=== PATIENT | female | born 1930 | race Caucasian/White ===

== ENCOUNTER 2016-12-12 12:28 | Emergency (ER) | payer OTHER ==
[~2016-12-12 12:28] MED LIST: ASPIR 8181 MG PO; COMINH INH; ESCITALOPRAM PO; FLA500 PO; HEP-FORTE1 CAP PO; HYDROCHLOROTHIA1 POW; LAC PO; LEVAQUIN750 MG PO; LEVOTHYROXIN0.025 M2; METOPROLOL SUCC25 M1; VITAMIN B121000 MCG PO
[2016-12-12 13:51] LABS: microscopic required? NO
[2016-12-12 14:17] LABS: CALCIUM 9.3 mg/dL (8.5-10.1); CARBON DIOXIDE 32.2 mmol/L (21-32); CHLORIDE SERUM 99 mmol/L (98-107); GLUCOSE SERUM 141 mg/dL (74-106); POTASSIUM SERUM 3.7 mmol/L (3.5-5.1); SODIUM SERUM 136 mmol/L (136-145)
[2016-12-12 14:22] LABS: ALBUMIN 3.4 g/dL (3.4-5.0); ALKALINE PHOSPHATASE 65 U/L (46-116); ALT/SGPT 15 U/L (14-59); AST/SGOT 18 U/L (15-37); BILIRUBIN TOTAL 0.8 mg/dL (0.20-1.00); TOTAL PROTEIN, SERUM 6.8 g/dL (6.4-8.2)
[2016-12-12 14:23] LABS: BASOPHIL % 0.5 % (0-2); PLATELET COUNT 252 x10^3mcL (130-400)
[2016-12-12 14:31] LABS: RED CELL DISTRIBUTION WIDTH 14.6 % (11.5-14.5)
[2016-12-12 14:43] LABS: CK-MB 0.8 ng/mL (0-3.6)
[2016-12-12 15:15] LABS: UA SPECIFIC GRAVITY 1.015 (1.005-1.035); urine erythrocyte NEGATIVE (NEGATIVE)
--- NOTE | 2016-12-12 15:16 | NUR ---
PT REFUSED ABG AT THIS TIME. DR. BIGGS MADE AWARE.
[2016-12-12 16:16] VITALS: BP 147/65
== END 2016-12-12 16:16 | disposition home or self-care (01) ==
LOC: ED 12:28
PROVIDERS: Emergency Medicine
DX: R51 Headache (principal); I25.10 Atherosclerotic heart disease of native coronary artery without angina pectoris; I25.2 Old myocardial infarction; I10 Essential (primary) hypertension; E03.9 Hypothyroidism, unspecified; J44.9 Chronic obstructive pulmonary disease, unspecified; D58.0 Hereditary spherocytosis; Z88.5 Allergy status to narcotic agent; Z87.891 Personal history of nicotine dependence; Z85.118 Personal history of other malignant neoplasm of bronchus and lung
CPT/HCPCS: 83880; J7030; Q0092

== ENCOUNTER 2017-05-12 16:09 | Emergency (ER) | payer OTHER ==
[2017-05-12 17:39] LABS: BASOPHIL % 0.6 % (0-2); PLATELET COUNT 182 x10^3mcL (130-400); RED CELL DISTRIBUTION WIDTH 14.5 % (11.5-14.5)
[2017-05-12 17:51] LABS: ALBUMIN 3.6 g/dL (3.4-5.0); ALKALINE PHOSPHATASE 75 U/L (46-116); ALT/SGPT 14 U/L (14-59); AST/SGOT 29 U/L (15-37); BILIRUBIN TOTAL 0.79 mg/dL (0.20-1.00); CARBON DIOXIDE 32.4 mmol/L (21-32); CHLORIDE SERUM 97 mmol/L (98-107); CREATININE SERUM 0.9 mg/dL (0.6-1.0); GLUCOSE SERUM 104 mg/dL (74-106); POTASSIUM SERUM 4.1 mmol/L (3.5-5.1); SODIUM SERUM 135 mmol/L (136-145); TOTAL PROTEIN, SERUM 7.3 g/dL (6.4-8.2)
[2017-05-12 19:20] VITALS: BP 158/73
== END 2017-05-12 19:20 | disposition home or self-care (01) ==
LOC: ED 16:09
PROVIDERS: Emergency Medicine
DX: R27.0 Ataxia, unspecified (principal); I10 Essential (primary) hypertension; J44.9 Chronic obstructive pulmonary disease, unspecified; E03.9 Hypothyroidism, unspecified; Z85.3 Personal history of malignant neoplasm of breast; Z85.118 Personal history of other malignant neoplasm of bronchus and lung; Z88.5 Allergy status to narcotic agent; Z79.899 Other long term (current) drug therapy
CPT/HCPCS: 36415; Q0092

== ENCOUNTER 2017-09-16 19:20 | Emergency (ER) | payer OTHER ==
[~2017-09-16] VITALS: Ht 160 cm; Wt 50.3 kg
[2017-09-16 20:08] VITALS: BP 155/74; Ht 160 cm; Wt 50.3 kg
== END 2017-09-16 21:04 | disposition home or self-care (01) ==
LOC: ED 19:20
DX: S81.812A Laceration without foreign body, left lower leg, initial encounter (principal); Z88.5 Allergy status to narcotic agent; W54.0XXA Bitten by dog, initial encounter; Y93.89 Activity, other specified; Y92.89 Other specified places as the place of occurrence of the external cause; Y99.8 Other external cause status
CPT/HCPCS: 90715

== ENCOUNTER 2017-12-22 13:27 | Emergency (ER) | payer OTHER ==
[~2017-12-22] VITALS: Ht 160 cm; Wt 54.4 kg
[2017-12-22 13:29] VITALS: Ht 160 cm; Wt 54.4 kg
[2017-12-22 15:51] VITALS: BP 123/61
== END 2017-12-22 15:51 | disposition home or self-care (01) ==
LOC: ED 13:27
DX: R42 Dizziness and giddiness (principal); R51 Headache; I10 Essential (primary) hypertension; J44.9 Chronic obstructive pulmonary disease, unspecified; Z88.5 Allergy status to narcotic agent; Z90.49 Acquired absence of other specified parts of digestive tract; Z85.3 Personal history of malignant neoplasm of breast; Z85.118 Personal history of other malignant neoplasm of bronchus and lung
CPT/HCPCS: J1885; J8597

== ENCOUNTER 2018-03-29 00:12 | Emergency (ER) | payer OTHER ==
[~2018-03-29] VITALS: Ht 160 cm; Wt 49.9 kg
[2018-03-29 01:22] LABS: BASOPHIL % 0.6 % (0-2); PLATELET COUNT 225 x10^3mcL (130-400)
[2018-03-29 01:23] LABS: RED CELL DISTRIBUTION WIDTH 16.3 % (11.5-14.5)
[2018-03-29 01:31] LABS: CALCIUM 8.7 mg/dL (8.5-10.1); CARBON DIOXIDE 28.2 mmol/L (21-32); CHLORIDE SERUM 95 mmol/L (98-107); CREATININE SERUM 1.3 mg/dL (0.6-1.0); GLUCOSE SERUM 97 mg/dL (74-106); POTASSIUM SERUM 3.6 mmol/L (3.5-5.1); SODIUM SERUM 133 mmol/L (136-145)
[2018-03-29 01:37] LABS: AMPHETAMINE QUAL UR NONE DETECTED (See below)
[2018-03-29 01:39] LABS: ALBUMIN 3.5 g/dL (3.4-5.0); ALKALINE PHOSPHATASE 65 U/L (46-116); ALT/SGPT 17 U/L (14-59); AST/SGOT 18 U/L (15-37); BILIRUBIN TOTAL 0.87 mg/dL (0.20-1.00); MAGNESIUM 1.5 mg/dL (1.8-2.4); TOTAL PROTEIN, SERUM 6.4 g/dL (6.4-8.2)
[2018-03-29 01:58] LABS: FREE T4 1.51 ng/dL (0.76-1.46); FREE THYROXINE INDEX 3.4 ug/dL (1.4-4.5); T4(THYROXINE) 8.6 ug/dL (4.7-13.3)
[2018-03-29 02:23] LABS: T3 TOTAL 0.76 ng/mL
[2018-03-29 07:53] VITALS: BP 130/61
== END 2018-03-29 07:53 | disposition home or self-care (01) ==
LOC: ED 00:12
PROVIDERS: Emergency Medicine
DX: R00.2 Palpitations (principal); E83.42 Hypomagnesemia; N28.9 Disorder of kidney and ureter, unspecified; I10 Essential (primary) hypertension; J44.9 Chronic obstructive pulmonary disease, unspecified; Z88.5 Allergy status to narcotic agent
CPT/HCPCS: 84439; J3475; Q0092

== ENCOUNTER 2018-06-05 11:25 | Inpatient (IN) | payer OTHER ==
[~2018-06-05] VITALS: Ht 157.5 cm; Wt 50.0 kg
[2018-06-05 11:29] VITALS: Ht 157.5 cm; Wt 50.0 kg
[2018-06-05 13:06] LABS: CALCIUM 8.9 mg/dL (8.5-10.1); CARBON DIOXIDE 34.5 mmol/L (21-32); CHLORIDE SERUM 99 mmol/L (98-107); CREATININE SERUM 1.3 mg/dL (0.6-1.0); GLUCOSE SERUM 113 mg/dL (74-106); POTASSIUM SERUM 3.6 mmol/L (3.5-5.1); SODIUM SERUM 138 mmol/L (136-145)
[2018-06-05 13:14] LABS: BASOPHIL % 0.3 % (0-2); FREE T4 1.64 ng/dL (0.76-1.46); FREE THYROXINE INDEX 2.8 ug/dL (1.4-4.5); PLATELET COUNT 222 x10^3mcL (130-400); T4(THYROXINE) 7.6 ug/dL (4.7-13.3)
[2018-06-05 13:15] LABS: RED CELL DISTRIBUTION WIDTH 16.1 % (11.5-14.5)
[2018-06-05 13:21] LABS: ALKALINE PHOSPHATASE 80 U/L (46-116); ALT/SGPT 16 U/L (14-59); AST/SGOT 17 U/L (15-37); C REACTIVE PROTEIN 4.5 mg/dL (<=0.9)
[2018-06-05 13:27] LABS: CK-MB 1.2 ng/mL (0-3.6)
[2018-06-05 13:28] LABS: T3 TOTAL 0.71 ng/mL
[2018-06-05 13:31] LABS: ALBUMIN 3.1 g/dL (3.4-5.0)
[2018-06-05 14:11] LABS: ERYTHROCYTE SED RATE 35 mm/hr (0-30)
[2018-06-05 14:23] LABS: UA SPECIFIC GRAVITY 1.025 (1.005-1.035); microscopic required? YES; urine erythrocyte NEGATIVE (NEGATIVE)
[2018-06-05] MEDS ORDERED: ASPIR LOW81 MG PO (14:39)
[2018-06-05] MEDS ORDERED: VITAMIN B12-FO1 EACH PO (14:39)
[2018-06-05] MEDS ORDERED: LEVOTHYROXIN0.025 M2 PO (14:40)
[2018-06-05] MEDS ORDERED: HYDROCHLOROTH12.5 M2 PO (14:40)
[2018-06-05] MEDS ORDERED: METOPROLOL SUCC50 M2 PO (14:40)
[2018-06-05] MEDS ORDERED: LORAZEPAM0.5 MG PO (14:40)
[2018-06-05] MEDS ORDERED: ATROVENT H0.017 MG/1 IH (14:40)
[2018-06-05 15:37] VITALS: BP 132/52
[2018-06-05 20:19] VITALS: BP 106/41
[2018-06-06 05:19] VITALS: BP 135/55
[2018-06-06 05:56] LABS: BASOPHIL % 0.4 % (0-2); PLATELET COUNT 183 x10^3mcL (130-400)
[2018-06-06 06:22] LABS: ALBUMIN 2.6 g/dL (3.4-5.0); ALKALINE PHOSPHATASE 64 U/L (46-116); ALT/SGPT 15 U/L (14-59); AST/SGOT 19 U/L (15-37); BILIRUBIN TOTAL 0.86 mg/dL (0.20-1.00); CALCIUM 8.3 mg/dL (8.5-10.1); CARBON DIOXIDE 32.2 mmol/L (21-32); CHLORIDE SERUM 104 mmol/L (98-107); GLUCOSE SERUM 101 mg/dL (74-106); MAGNESIUM 1.8 mg/dL (1.8-2.4); SODIUM SERUM 140 mmol/L (136-145); TOTAL PROTEIN, SERUM 6.1 g/dL (6.4-8.2)
[2018-06-06 06:43] LABS: RED CELL DISTRIBUTION WIDTH 16.7 % (11.5-14.5)
[2018-06-06 08:57] VITALS: BP 139/51
[2018-06-06] MEDS ORDERED: CLOPIDOGREL300 M1 PO (11:04)
[2018-06-06 13:35] VITALS: BP 143/51
[2018-06-06 17:28] VITALS: BP 112/43
[2018-06-06 20:43] VITALS: BP 125/53
[2018-06-07 05:44] VITALS: BP 122/61
[2018-06-07 05:59] LABS: BASOPHIL % 0.2 % (0-2); PLATELET COUNT 144 x10^3mcL (130-400)
[2018-06-07 06:35] LABS: ALKALINE PHOSPHATASE 63 U/L (46-116); ALT/SGPT 15 U/L (14-59); AST/SGOT 16 U/L (15-37); CALCIUM 8.6 mg/dL (8.5-10.1); CHLORIDE SERUM 100 mmol/L (98-107); CREATININE SERUM 0.9 mg/dL (0.6-1.0); GLUCOSE SERUM 89 mg/dL (74-106); MAGNESIUM 1.7 mg/dL (1.8-2.4); PHOSPHOROUS 3.1 mg/dL (2.5-4.9); POTASSIUM SERUM 3.9 mmol/L (3.5-5.1); SODIUM SERUM 135 mmol/L (136-145)
[2018-06-07 06:40] LABS: ALBUMIN 2.6 g/dL (3.4-5.0)
[2018-06-07 06:49] LABS: RED CELL DISTRIBUTION WIDTH 16.3 % (11.5-14.5)
[2018-06-07 08:48] VITALS: BP 127/46
[2018-06-07 13:32] VITALS: BP 113/45
[2018-06-07 20:50] VITALS: BP 132/46
[2018-06-08 00:19] VITALS: BP 144/63
[2018-06-08 05:11] VITALS: BP 121/52
[2018-06-08 06:34] LABS: ALKALINE PHOSPHATASE 62 U/L (46-116); ALT/SGPT 15 U/L (14-59); AST/SGOT 16 U/L (15-37); BILIRUBIN TOTAL 1.1 mg/dL (0.20-1.00); CALCIUM 8.8 mg/dL (8.5-10.1); CARBON DIOXIDE 36.9 mmol/L (21-32); CHLORIDE SERUM 96 mmol/L (98-107); CREATININE SERUM 0.8 mg/dL (0.6-1.0); GLUCOSE SERUM 107 mg/dL (74-106); MAGNESIUM 1.9 mg/dL (1.8-2.4); PHOSPHOROUS 2.6 mg/dL (2.5-4.9); POTASSIUM SERUM 4.3 mmol/L (3.5-5.1); SODIUM SERUM 132 mmol/L (136-145)
[2018-06-08 07:03] LABS: BASOPHIL % 0.2 % (0-2); PLATELET COUNT 140 x10^3mcL (130-400)
[2018-06-08 07:04] LABS: RED CELL DISTRIBUTION WIDTH 15.1 % (11.5-14.5)
[2018-06-08 07:05] LABS: ALBUMIN 2.7 g/dL (3.4-5.0); TOTAL PROTEIN, SERUM 6.1 g/dL (6.4-8.2)
[2018-06-08 09:16] VITALS: BP 130/52
[2018-06-08 13:36] VITALS: BP 144/51
[2018-06-08 18:03] VITALS: BP 139/52
[2018-06-08 21:05] VITALS: BP 135/50
[2018-06-09] VITALS (7 sets, daily range): BP systolic 111–148; BP diastolic 39–86
[2018-06-09 07:22] LABS: PLATELET COUNT 163 x10^3mcL (130-400)
[2018-06-09 07:24] LABS: RED CELL DISTRIBUTION WIDTH 16.3 % (11.5-14.5)
[2018-06-09 07:25] LABS: BASOPHIL % 0 % (0-2)
[2018-06-09 07:49] LABS: ALKALINE PHOSPHATASE 55 U/L (46-116); ALT/SGPT 17 U/L (14-59); AST/SGOT 21 U/L (15-37); BILIRUBIN TOTAL 1.2 mg/dL (0.20-1.00); CARBON DIOXIDE 36.3 mmol/L (21-32); CHLORIDE SERUM 93 mmol/L (98-107); CREATININE SERUM 0.7 mg/dL (0.6-1.0); GLUCOSE SERUM 111 mg/dL (74-106); MAGNESIUM 1.7 mg/dL (1.8-2.4); PHOSPHOROUS 1.7 mg/dL (2.5-4.9); POTASSIUM SERUM 4.3 mmol/L (3.5-5.1); SODIUM SERUM 133 mmol/L (136-145)
[2018-06-09 07:53] LABS: ALBUMIN 2.8 g/dL (3.4-5.0); TOTAL PROTEIN, SERUM 6.1 g/dL (6.4-8.2)
[2018-06-10 05:17] VITALS: BP 149/64
[2018-06-10 05:56] LABS: BASOPHIL % 0.4 % (0-2); PLATELET COUNT 169 x10^3mcL (130-400)
[2018-06-10 07:12] LABS: RED CELL DISTRIBUTION WIDTH 16.4 % (11.5-14.5)
[2018-06-10 07:35] LABS: CHLORIDE SERUM 95 mmol/L (98-107); POTASSIUM SERUM 4.7 mmol/L (3.5-5.1); SODIUM SERUM 134 mmol/L (136-145)
[2018-06-10 07:54] LABS: ALKALINE PHOSPHATASE 62 U/L (46-116); ALT/SGPT 18 U/L (14-59); AST/SGOT 22 U/L (15-37); BILIRUBIN TOTAL 0.95 mg/dL (0.20-1.00); CALCIUM 8.4 mg/dL (8.5-10.1); CREATININE SERUM 0.9 mg/dL (0.6-1.0); GLUCOSE SERUM 120 mg/dL (74-106); MAGNESIUM 1.9 mg/dL (1.8-2.4); PHOSPHOROUS 2.9 mg/dL (2.5-4.9)
[2018-06-10 07:56] LABS: TOTAL PROTEIN, SERUM 6.1 g/dL (6.4-8.2)
[2018-06-10 07:57] LABS: ALBUMIN 2.7 g/dL (3.4-5.0)
[2018-06-10 09:00] VITALS: BP 149/55
[2018-06-10 12:04] VITALS: BP 132/62
[2018-06-10 18:10] VITALS: BP 156/64
[2018-06-10 20:56] VITALS: BP 139/65
[2018-06-11 06:07] VITALS: BP 118/82
[2018-06-11 09:23] VITALS: BP 153/92
[2018-06-11 10:47] LABS: CALCIUM 8.5 mg/dL (8.5-10.1); CHLORIDE SERUM 93 mmol/L (98-107); CREATININE SERUM 0.9 mg/dL (0.6-1.0); GLUCOSE SERUM 119 mg/dL (74-106); POTASSIUM SERUM 4.8 mmol/L (3.5-5.1); SODIUM SERUM 131 mmol/L (136-145)
[2018-06-11 10:49] LABS: CARBON DIOXIDE 40.3 mmol/L (21-32)
[2018-06-11 11:10] LABS: PLATELET COUNT 181 x10^3mcL (130-400)
[2018-06-11 11:13] LABS: BASOPHIL % 0 % (0-2); RED CELL DISTRIBUTION WIDTH 15.7 % (11.5-14.5)
[2018-06-11 12:00] VITALS: BP 154/65
[2018-06-11 16:15] VITALS: BP 149/62; BP 99/46
[2018-06-11 18:18] VITALS: BP 153/76
[2018-06-11 20:20] VITALS: BP 149/71
[2018-06-12] VITALS (7 sets, daily range): BP systolic 138–166; BP diastolic 52–64
[2018-06-12 03:26] LABS: microscopic required? NO
[2018-06-12 04:21] LABS: UA SPECIFIC GRAVITY 1.015 (1.005-1.035); urine erythrocyte NEGATIVE (NEGATIVE)
[2018-06-12 06:23] LABS: BASOPHIL % 0.3 % (0-2); PLATELET COUNT 196 x10^3mcL (130-400)
[2018-06-12 06:54] LABS: ALKALINE PHOSPHATASE 56 U/L (46-116); ALT/SGPT 10 U/L (14-59); AST/SGOT 26 U/L (15-37); BILIRUBIN TOTAL 1.07 mg/dL (0.20-1.00); CALCIUM 8.6 mg/dL (8.5-10.1); CHLORIDE SERUM 95 mmol/L (98-107); CREATININE SERUM 0.9 mg/dL (0.6-1.0); GLUCOSE SERUM 110 mg/dL (74-106); POTASSIUM SERUM 4.8 mmol/L (3.5-5.1); SODIUM SERUM 135 mmol/L (136-145)
[2018-06-12 06:55] LABS: ALBUMIN 2.7 g/dL (3.4-5.0)
[2018-06-12 06:57] LABS: CARBON DIOXIDE 40.6 mmol/L (21-32)
[2018-06-12 09:52] LABS: RED CELL DISTRIBUTION WIDTH 16.3 % (11.5-14.5)
== END 2018-06-12 20:59 | disposition hospice, home (50) | DRG 280 ==
LOC: ED 11:25 → DU 14:16
PROVIDERS: Internal Medicine; Internal Medicine Pulmonary Disease; Specialist
DX: I21.A1 Myocardial infarction type 2 (principal); J96.22 Acute and chronic respiratory failure with hypercapnia; J96.21 Acute and chronic respiratory failure with hypoxia; Z68.1 Body mass index [BMI] 19.9 or less, adult; E86.0 Dehydration; I11.9 Hypertensive heart disease without heart failure; I25.10 Atherosclerotic heart disease of native coronary artery without angina pectoris; R54 Age-related physical debility; E03.9 Hypothyroidism, unspecified; J44.9 Chronic obstructive pulmonary disease, unspecified; I25.2 Old myocardial infarction; Z87.891 Personal history of nicotine dependence; Z85.3 Personal history of malignant neoplasm of breast; Z95.5 Presence of coronary angioplasty implant and graft; Z85.110 Personal history of malignant carcinoid tumor of bronchus and lung; Z88.5 Allergy status to narcotic agent; Z90.81 Acquired absence of spleen; Z90.710 Acquired absence of both cervix and uterus; Z90.49 Acquired absence of other specified parts of digestive tract
CPT/HCPCS: 36600; 82962; 83880; 84439; J0696; J1650; J1940; J2405; J3475; J3490; J7030; J7042; J7050; J7120; J7613; J7620; J7626; Q0092